=== PATIENT | male | born 1960 | race Caucasian/White ===

== ENCOUNTER 2019-02-21 09:56 | Observation (INO) ==
[2019-02-21] MEDS ORDERED: Aspirin 81 MG TAB.CHEW PO ONE (10:09)
[2019-02-21] MEDS ORDERED: Nitroglycerin 0.4 MG TAB.SUBL SL PRN (10:09)
[2019-02-21 10:26] LABS: Basophils # 0.1 K/mcL (0.0-0.2); Basophils % 0.8 %; Eosinophils # 0.1 K/mcL (0.0-0.6); Eosinophils % 0.8 %; Hematocrit 43.1 % (37.5-50.1); Hemoglobin 14.4 g/dL (12.9-16.9); Immature Granulocytes % 0.3 % (0-4); Lymphocytes # 1.9 K/mcL (0.6-4.6); Lymphocytes % 18.5 %; Mean Corpuscular HGB Conc 33.4 g/dL (31.6-35.5); Mean Corpuscular Hemoglobin 31.6 pg (28.0-33.3); Mean Corpuscular Volume 94.7 fL (83.0-100.0); Mean Platelet Volume 10.5 fL (9.4-12.4); Monocytes # 0.6 K/mcL (0.0-1.3); Monocytes % 5.9 %; Neutrophils # 7.5 K/mcL (1.6-8.9); Platelet Count 208 K/mcL (140-400); Red Blood Count 4.55 M/mcL (4.19-5.50); Segmented Neutrophils % 73.7 %; White Blood Count 10.1 K/mcL (4.3-11.1)
[2019-02-21 10:29] LABS: INR 1.1; Prothrombin Time 12.1 Seconds (9.4-12.1)
[2019-02-21 10:32] LABS: Activated Partial Thrombo Time 35.4 Seconds (26.0-36.0)
[2019-02-21 10:45] LABS: BUN/Creatinine Ratio 21 (6-26); Blood Urea Nitrogen 18 mg/dL (6-20); Calcium 9.2 mg/dL (8.6-10.3); Carbon Dioxide 27 mEq/L (23-29); Chloride 104 mEq/L (98-107); Glucose 103 mg/dL (70-105); Osmolality,Calculated 286 (280-300); Potassium 3.8 mEq/L (3.5-5.1); Sodium 137 mEq/L (136-145); Troponin I < 0.03 ng/mL (< 0.04); eGFR For African Americans > 60 (> 60); eGFR For Non-African Americans > 60 (> 60)
[2019-02-21] MEDS ORDERED: Nitroglycerin 1 INCH/GM PACKET TP ONE (11:00)
[2019-02-21] MEDS ORDERED: Ondansetron 4 MG/2 ML VIAL IVP PRN (13:15)
[2019-02-21] MEDS ORDERED: Naloxone 0.4 MG/ML INJ IVP PRN (13:15)
[2019-02-21] MEDS ORDERED: Isovue-370 500 ML BOTTLE IVP ONE (13:54)
[2019-02-21] MEDS ORDERED: traMADol 50 MG TABLET PO PRN (13:56)
[2019-02-21] MEDS ORDERED: *HR* FentaNYL (PF) 100 MCG/2 ML VIAL IVP PRN (13:57)
[2019-02-21 16:34] LABS: Chol/HDL Ratio 6.2 (0-4.9); Cholesterol 180 mg/dL (< 200); HDL Cholesterol 29 mg/dL (40-59); LDL Cholesterol,Calculated 123 mg/dL (0-99); Triglycerides 140 mg/dL (< 150); Troponin I < 0.03 ng/mL (< 0.04)
[2019-02-21] MEDS: *HR* Heparin 5,000 UNIT/ML VIAL SQ SCH (16:36)
[2019-02-22] MEDS: *HR* Heparin 5,000 UNIT/ML VIAL SQ SCH (05:34)
[2019-02-22] MEDS ORDERED: Regadenoson 0.4 MG/5 ML SYRINGE IVP ONE (06:16)
[2019-02-22] MEDS ORDERED: Aspirin 81 MG TAB.CHEW PO SCH (09:00)
[2019-02-22 11:19] VITALS: BP 137/85
== END 2019-02-22 13:54 | disposition home or self-care (01) ==
LOC: EMEROOARM 09:56 → 3BNU 09:56 → SUATTDRO 11:49 → 3BNU 12:09
PROVIDERS: ADMIT Student in an Organized Health Care Education/Training Program; ATTEND Family Medicine